=== PATIENT | male | born 1995 | race Two or more races ===

== ENCOUNTER 2019-04-27 14:31 | Emergency (ER) | payer MEDICAID, OTHER ==
[~2019-04-27] VITALS: Ht 175.3 cm; Wt 63.5 kg
[2019-04-27] MEDS ORDERED: IOHEXOL 300 MG/ML 100ML BOTTLE IJ ONE (16:22)
[2019-04-27 16:38] LABS: Basophils # (auto) 0.1 uL; Basophils % (auto) 0.4 % (0.0-2.0); Eosinophils # (auto) 0.3 uL; Eosinophils % (auto) 1.3 % (0.0-7.0); Hematocrit 35.5 % (41.0-53.0); Hemoglobin 11.9 g/dL (13.5-17.5); Lymphocytes # (auto) 1.3 uL; Lymphocytes % (auto) 6.1 % (10.0-50.0); Mean Corpuscular Hemoglobin 30.1 pg (28.0-32.0); Mean Corpuscular Hgb Conc. 33.5 g/dL (32.0-36.0); Mean Corpuscular Volume 89.7 fL (80.0-100.0); Monocytes # (auto) 2.5 uL; Monocytes % (auto) 12.1 % (0.0-12.0); Neutrophils # (auto) 16.7 uL; Neutrophils % (auto) 80.1 % (37.0-80.0); Platelet Count (auto) 318 10^3/uL (140-450); Red Blood Cells 3.96 10^6/uL (4.5-5.90); Red Cell Distribution Width 13.3 % (11.8-14.3); White Blood Cell 20.9 10^3/uL (4.4-10.8)
[2019-04-27 16:53] LABS: INR 1.02 (0.9-1.15); Partial Thromboplastin Time 28.5 sec (23.64-32.05)
[2019-04-27 16:55] LABS: Albumin 2.9 g/dL (3.4-5.0); Calcium 8.4 mg/dL (8.5-10.1); Potassium 3.1 mmol/L (3.5-5.1)
[2019-04-27 16:58] LABS: BUN/Creatinine Ratio 16.2; Bilirubin, Total 0.5 mg/dL (0.2-1.0); Total Protein 7.2 g/dL (6.4-8.2)
[2019-04-27] MEDS ORDERED: cefTRIAXone 1GM/50ML D5W 50 ML IV ONE (17:00)
[2019-04-27] MEDS ORDERED: AZITHROMYCIN 500MG/ 250ML 250 ML IV ONE (17:00)
[2019-04-27] MEDS ORDERED: ONDANSETRON HCL 4 MG/2 ML VIAL IV ONE (19:00)
[2019-04-27] MEDS ORDERED: MORPHINE SULF INJ 2 MG/ML SYRINGE 1ML IV ONE (19:00)
[2019-04-27] MEDS ORDERED: HYDROmorphone HCL 2 MG/ML VL IV ONE (19:20)
[2019-04-27 20:04] VITALS: BP 101/74
== END 2019-04-27 23:11 ==
LOC: ER 14:33
DX: J18.9 Pneumonia, unspecified organism (principal); S22.42XA Multiple fractures of ribs, left side, initial encounter for closed fracture; S22.20XS Unspecified fracture of sternum, sequela; X58.XXXA Exposure to other specified factors, initial encounter; Y93.89 Activity, other specified; Y92.89 Other specified places as the place of occurrence of the external cause; Y99.8 Other external cause status
CPT/HCPCS: 36415; 71101; 71260; 72070; 80053; 85025; 85610; 85730; 96365; 96368; 96375; 99285; J0456; J0696; J1170; Q9967; 81001; J2405